=== PATIENT | female | born 2000 | race Caucasian/White ===

== ENCOUNTER 2021-05-02 15:06 | Emergency (ER) | payer OTHER ==
[~2021-05-02] VITALS: Ht 170.2 cm; Wt 59.5 kg
[2021-05-02 15:23] VITALS: BP 129/91
[2021-05-02] MEDS ORDERED: PRED20TA PO (15:28)
[2021-05-02] MEDS ORDERED: ALBU8HFA PO (15:28)
[2021-05-02] MEDS ORDERED: DOXY100C43 PO (15:28)
[2021-05-02] MEDS ORDERED: ALB0.5UD IH (15:28)
[2021-05-02] MEDS ORDERED: dexamethasone 4mg tablet PO ONE (15:30)
[2021-05-02] MEDS ORDERED: ipratropium/albuterol 3ml nebule NEB ONE (15:30)
[2021-05-02] MEDS ORDERED: acetaminophen 325mg tablet PO ONE (15:35)
== END 2021-05-02 19:21 | disposition home or self-care (01) ==
LOC: ER 15:08
DX: J20.9 Acute bronchitis, unspecified (principal); Z20.822 Contact with and (suspected) exposure to COVID-19; J45.909 Unspecified asthma, uncomplicated; F12.90 Cannabis use, unspecified, uncomplicated; Z79.2 Long term (current) use of antibiotics; Z79.899 Other long term (current) drug therapy
CPT/HCPCS: 87635; 94640; 99283; C9803; 94760